=== PATIENT | female | born 1955 | race African-American/Black ===

== ENCOUNTER 2017-06-07 08:13 | Emergency (ER) | payer BC, OTHER ==
[~2017-06-07] VITALS: Ht 165.1 cm; Wt 81.6 kg
[2017-06-07] MEDS ORDERED: KETOROLAC TROMETH 60MG/2ML VIAL IM ONE (09:45)
[2017-06-07 10:31] VITALS: BP 143/69
== END 2017-06-07 10:53 | disposition home or self-care (01) ==
LOC: ER 08:13
DX: S16.1XXA Strain of muscle, fascia and tendon at neck level, initial encounter (principal); S29.012A Strain of muscle and tendon of back wall of thorax, initial encounter; S76.011A Strain of muscle, fascia and tendon of right hip, initial encounter; I48.91 Unspecified atrial fibrillation; I10 Essential (primary) hypertension; W19.XXXA Unspecified fall, initial encounter; Y93.01 Activity, walking, marching and hiking; Y99.8 Other external cause status; Y92.89 Other specified places as the place of occurrence of the external cause
CPT/HCPCS: 72040; 72070; 73502; 96372; 99284; J1885

== ENCOUNTER → 2017-10-24 | Outpatient (CLI) | payer OTHER ==
[~2017-10-24] MED LIST: BUPIVACAINE 0.25% INJ 50ML VIAL ONE; IOHEXOL 300 MG/ML 100ML BOTTLE IJ ONE; LIDOCAINE 2%HCL (LOCAL ANESTH.) INJ 20ML MDV ONE; methylPREDNISolone ACETATE 80 MG/ML VL ONE
== END | disposition home or self-care (01) ==
LOC: XY 08:49
PROVIDERS: ATTEND Orthopaedic Surgery Adult Reconstructive Orthopaedic Surgery
DX: S46.911A Strain of unspecified muscle, fascia and tendon at shoulder and upper arm level, right arm, initial encounter (principal); X58.XXXA Exposure to other specified factors, initial encounter; Y93.89 Activity, other specified; Y92.89 Other specified places as the place of occurrence of the external cause; Y99.8 Other external cause status
CPT/HCPCS: 73020; 77002; J1040; J3490; Q9967